=== PATIENT | female | born 1995 | race Caucasian/White ===

== ENCOUNTER → 2016-07-10 | Outpatient (CLI) | payer SELFPAY ==
--- NOTE | 2016-07-10 18:22 | DI ---
LEFT ANKLE, 07/10/2016 5:46 PM: Clinical History: Left ankle injury. Initial encounter. Previous Exam: 06/19/2015. 3 views are submitted. There is no acute soft tissue, osseous, or joint abnormality. Reading: Normal left ankle exam.
== END ==
LOC: MOB RAD 17:46
PROVIDERS: ATTEND Physician Assistant Medical
DX: S99.912A Unspecified injury of left ankle, initial encounter (principal); S93.412A Sprain of calcaneofibular ligament of left ankle, initial encounter; W22.8XXA Striking against or struck by other objects, initial encounter
CPT/HCPCS: 73610

== ENCOUNTER → 2016-11-13 | Outpatient (CLI) | payer OTHER ==
--- NOTE | 2016-11-13 15:10 | DI ---
History: Early stage of Comparison: None Findings: There are intra-uterine twin gestational sacs by a septum. Sac size indicates a gestational age of 6 weeks 2 days, to 6 weeks 3 days. Neither a pole nor yolk sac could be identified in either gestational sac. The right ovary is normal in appearance and measures 4.2 x 2.3 x 2.6 cm. The left ovary could not be identified. There are no cystic or echogenic adnexal lesions. There is a very small amount of free fluid in the cul-de-sac. Impression Findings indicate blighted ovum. Possibility of ectopic cannot completely be excluded. Reimaging within the next 2 weeks is recommended.
--- NOTE | 2016-11-14 11:29 | DI ---
Clinical history: Early stage of . Gestational age by last menstrual period is 8 weeks 2 day s Comparison: None Findings: There is an intrauterine uterine gestational sac with a thin septation, indicating twin pre gnancy. Cannot identify a pole or yolk sac in either gestational sac a or b Gestational age of twin A. By sac size is 6 weeks 2 days Gestational age of twin B by sac size is 6 weeks 3 days. There are no echogenic or anechoic adnexal lesions. There is no free fluid. Ovaries could not be iden tified. Impression Intrauterine gestational sac which appears to represent a twin gestation. Neither pole nor yolk sac could be identified for either twin A. or twin B. Findings could indicate early intrauterine , blighted ovum, or ectopic . Followup u ltrasound examination in 2 weeks is recommended.
== END ==
LOC: US 13:52
PROVIDERS: ATTEND Obstetrics & Gynecology
DX: Z36 Encounter for antenatal screening of mother (principal)
CPT/HCPCS: 36415; 76801; 76817; 84702; 86900; 86901

== ENCOUNTER → 2016-11-15 | Outpatient (CLI) | payer OTHER | LOC: LAB 10:51 | PROVIDERS: ATTEND Obstetrics & Gynecology | DX: O02.0 Blighted ovum and nonhydatidiform mole (principal) | CPT/HCPCS: 36415; 84702 ==

== ENCOUNTER → 2016-11-17 | Outpatient (CLI) | payer OTHER | LOC: LAB 10:49 | PROVIDERS: ATTEND Obstetrics & Gynecology | DX: O02.0 Blighted ovum and nonhydatidiform mole (principal); R79.89 Other specified abnormal findings of blood chemistry | CPT/HCPCS: 36415; 84702 ==

== ENCOUNTER → 2016-11-20 | Outpatient (CLI) | payer OTHER ==
--- NOTE | 2016-11-20 15:26 | DI ---
OBSTETRICAL ULTRASOUND, 11/20/2016 2:21 PM: Clinical History: Anembryonic twin . Previous Exam: 11/13/2016. LMP: 09/16/2016. Twin intrauterine gestational sacs are visualized. Both gestational sacs contain no parts consi stent with the clinical history of anembryonic twin pregnancies. The mean gestational sac diameters a re 15 and 16 cm each and on the previous study, they were 15 cm apiece. This would indicate there has been no significant interval growth over a duration of one week. The right ovary is normal. The left ovary is not visualized. Reading: Twin intrauterine gestational sacs without evidence of parts and without demonstrable growth ov er a duration of one week consistent with anembryonic pregnancies.
== END ==
LOC: US 14:16
PROVIDERS: ATTEND Obstetrics & Gynecology
DX: O02.0 Blighted ovum and nonhydatidiform mole (principal); R79.9 Abnormal finding of blood chemistry, unspecified
CPT/HCPCS: 76817

== ENCOUNTER 2016-11-23 06:08 | Day surgery (SDC) | payer OTHER ==
[2016-11-23] MEDS ORDERED: LIDOCAINE W/ SODIUM BICARB 0.5 ML SYR ONE (06:12)
[2016-11-23] MEDS ORDERED: Sodium Chloride 0.9% 100 ML IV ONE (06:13)
[2016-11-23] MEDS ORDERED: Lactated Ringers 1,000 ML PRIMARY IV ONE (06:13)
[2016-11-23] MEDS ORDERED: LIDOCAINE MPF 2% - 5 ML (20 MG/1 ML) ONE (06:57)
[2016-11-23] MEDS ORDERED: MIDAZOLAM 5 MG/1 ML ONE (06:57)
[2016-11-23] MEDS ORDERED: fentaNYL Inj 100 MCG/2 ML VIAL ONE (06:57)
[2016-11-23] MEDS ORDERED: Sodium Chloride 0.9% vial 10 ML ONE (06:57)
[2016-11-23] MEDS ORDERED: Acetaminophen 1000mg Inj 100 ML IV ONE (07:21)
[2016-11-23] MEDS ORDERED: KETAMINE 100 MG/1 ML - 5 ML ONE (07:38)
[2016-11-23] MEDS ORDERED: DEXAMETHASONE PF 10 MG/1 ML VIAL ONE (07:56)
[2016-11-23] MEDS ORDERED: KETOROLAC 30 MG/1 ML VIAL ONE (07:56)
[2016-11-23] MEDS ORDERED: ONDANSETRON 4 MG/2 ML VIAL ONE (07:57)
[2016-11-23] MEDS ORDERED: METHYLERGONOVINE MALEATE 0.2 MG/1 ML VIAL IM ONE (08:07)
[2016-11-23] MEDS ORDERED: ONDANSETRON 4 MG/2 ML VIAL IVP PRN (08:10)
[2016-11-23] MEDS ORDERED: Ondansetron ODT Tab 8 MG TAB PO PRN (08:10)
[2016-11-23] MEDS ORDERED: ATROPINE SULFATE 0.4 MG/1 ML VIAL IVP PRN (08:10)
[2016-11-23] MEDS ORDERED: NORMAL SALINE 10 ML SYRINGE FLUSH IVP PRN ×2 (08:10→08:23)
[2016-11-23] MEDS ORDERED: HYDROmorphone 2 MG/1 ML IVP PRN (08:10)
[2016-11-23] MEDS ORDERED: Lactated Ringers 1,000 ML PRIMARY IV SCH (08:15)
[2016-11-23] MEDS ORDERED: HYDROcodone-APAP 5 MG -325 MG TABLET PO PRN (08:23)
--- NOTE | 2016-11-23 08:42 | OB.OP.NOTE ---
Operative Report Surgeon: Julius Anesthesia Type: General (With LMA) Anesthesia Provider: Jaz Graham CRNA Surgery Date: 11/23/16 Preoperative Diagnosis: Twin Anembryonic gestation with abnormal quantitative hCG. The patient desired definitive management with suction D&C Postoperative Diagnosis: Same Procedure: Examined under anesthesia. Suction D&C Estimated Blood Loss (mL): 125 Fluids: 1700 mL LR. 150 mL of urine. 2 g Mefoxin IV after test dose Complications: None apparent No evidence of uterine perforation with uterine sound or with suction curette or sharp curette Findings at Surgery: Cervical OS dilated easily after Cytotec administration the evening before Tissue-products of conception-was suction curetted [place] after suction curette with gentle sharp curetting No evidence of uterine perforation Indications for the Procedure: The patient is a 21-year-old G one P0010 with a twin anembryonic gestation diagnosed by ultrasound and abnormal quantitative hCGs. The patient had 2 ultrasounds a week apart which confirmed the Anembryonic gestation and quantitative hCG 3. The patient desired definitive management with a suction D&C The patient has Rh+ blood Description of Procedure: After the risks, benefits, alternatives and indication of a suction D&C were discussed with the patient, the consent forms have been signed 2 days prior to the surgery. The Patient had placed Cytotec the evening before surgery. The patient did have some bleeding overnight with a possible passage of some tissue overnight. The morning of surgery, the patient was still bleeding. We discussed the procedure again and the patient agreed. The patient was brought to the operating room. The patient underwent general anesthesia with LMA. The patient was placed in the dorsal lithotomy position with yellowfin stirrups. The patient had SCDs in place and the machine was on. This was completed before induction of anesthesia. An exam under anesthesia was completed but I cannot palpate the uterus well. By ultrasound, the patient's uterus was anteflexed. But the patient's body habitus did not allow me to palpate the uterus well. The patient was prepped and draped sterilely. The bladder was drained of about 150 mL of urine. A timeout was completed and the patient and procedure were identified. The patient was awakened from her A weighted speculum was placed posterior and a Cope retractor was placed anteriorly. The patient's cervix was small and was very high in her pelvis. I was able to place a single-tooth tenaculum on the posterior lip of the cervical OS. The reason for placing the tenaculum on the posterior lip was secondary to the fact that the patient's uterus was anteflexed by ultrasound. I sounded the uterus to 9 cm. A #8 suction curved curette was requested. I dilated the patient's cervix up to a 30 dilator and the cervix easily dilated secondary to the Cytotec administration the previous evening which had ripened the patient's cervix. I then placed the suction curet through the cervix after testing the suction curette to a pressure of about 42. The suction curet was then allowed to curette any tissue and there was tissue obtained immediately. I suction curetted several times and then used a #1 sharp curette gently and there still was tissue around 12:00. There was a crigh obtained about 9:00. The curved suction curet was used again and more tissue was obtained. I gently sharply curetted again and there was still a small amount of tissue anteriorly. Care was taken not to perforate the uterus but to attempt to extract all of the tissue anteriorly. A suction curette was used again and there is a small amount of tissue obtained this time but mostly small amount of blood. A gentle sharp curetting was completed again and there appeared to be a good crigh in all 4 quadrants of the endometrial cavity. Since the patient's uterus was anteflexed, of course I was always cognizant of the fact of possible uterine perforation. There did not appear to be uterine perforation at any time. I had consented the patient before explaining that sometimes there is retained tissue and sometimes a second surgery or perhaps Cytotec would be required at a later date. Hopefully, of course, this is not the fact and I obtained all the tissue of products of conception. The suction curetting was completed. The tenaculum was removed from the posterior lip of the cervix. Initially, there was some bleeding. I attempted to place a suture but it was difficult to reach the cervix with the weighted speculum posteriorly and then a Cope retractor retracting anteriorly. However, eventually there was good hemostasis from the posterior lip of the cervix from the tenaculum site. There was also good hemostasis from the cervical OS. Methergine 0.2 mg IM was administered. The patient was awakened from her general anesthesia with LMA. LMA was removed. Toradol was administered IV. The patient was brought to the PACU in stable condition. Plan: I did speak with the patient's grandmother who was waiting in the operating room waiting room per patient request. I informed her that I believed everything went well and there was no evidence of uterine perforation. We did discuss the patient's anteflexed uterus and the fact that products of conception tissue could remain in the uterus and further procedures could be required but hopefully not. I would like to follow the patient's quantitative hCGs down to less than 2. The first one will be done in about 2 or 3 weeks.
[2016-11-23 08:53] VITALS: RESP 24; TEMP 98.3
[2016-11-23] MEDS ORDERED: HYDROmorphone 2 MG/1 ML ONE (09:03)
[2016-11-23] MEDS ORDERED: CITRIC ACID/SODIUM CITRATE 30 ML CUP PO ONE (09:57)
[2016-11-23] MEDS: CITRIC ACID/SODIUM CITRATE 30 ML CUP PO ONE ×2 (10:04→10:08)
== END 2016-11-23 10:42 | disposition home or self-care (01) ==
LOC: SDSC 06:08
PROVIDERS: ATTEND Obstetrics & Gynecology
DX: O02.1 Missed abortion (principal)
CPT/HCPCS: 59820; A4216; J0131; J0694; J1100; J1170; J1885; J2001; J2210; J2250; J2405; J2704; J3010; J7050; J7120

== ENCOUNTER 2018-02-01 14:29 | Observation (INO) ==
[2018-02-01 14:44] VITALS: BP 124/72; RESP 18; O2SAT 98
[2018-02-01] MEDS ORDERED: Lactated Ringers 1,000 ML PRIMARY IV ONE (16:27)
[2018-02-01] MEDS ORDERED: Lactated Ringers 1,000 ML PRIMARY IV SCH (16:30)
[2018-02-01 16:38] LABS: BILIRUBIN,URINE NEGATIVE (NEG); CLARITY,URINE CLEAR (CLEAR); COLOR,URINE YELLOW; GLUCOSE, URINE (UA) NEGATIVE (NEG); OCCULT BLOOD,URINE NEGATIVE (NEG); PH,URINE 7.5 (5.0-8.5); PROTEIN,URINE NEGATIVE (NEG); UROBILINOGEN,URINE 0.2 mg/dL (0.2)
[2018-02-01 16:44] LABS: RBC,URINE RARE /hpf; SQUAMOUS EPITHELIAL CELL,UR MODERATE; URINE SAMPLE TYPE CLEAN CATCH URINE; WBC,URINE RARE
--- NOTE | 2018-02-01 17:00 | OB.PROGRES ---
Intake - - Reason for Visit/Chief Complaint: Contractions Admitted From: Home - Estimated Due Date: 03/14/18 Gestational Age in Weeks and Days: 34 Weeks and 1 Days : 2 Para: 0 Term Births: 0 Births: 0 Number of Abortions (Spont./Elective): 1 Living Children: 0 - Labs Blood Type and Rh: O+ Group B Strep: Unknown Hepatitis B Surface Antigen: Absent HIV: Negative Rubella Status: Immune VDRL/RPR: Absent Maternal - Vital Signs Last Taken Vital Signs: Vital Signs - Last Taken Temperature 97.3 F 02/01/18 14:41 Pulse Rate 116 H 02/01/18 14:41 Respiratory Rate 18 02/01/18 14:41 Blood Pressure 124/72 02/01/18 14:41 Pulse Ox 98 02/01/18 14:41 - Cervical Exam Cervical Dilation (cm): 0 Station: -3 Exam Performed By: Jose Alfredo Cid RN - Vaginal Discharge Vaginal Bleeding Amount: None Vaginal Discharge Amount: Moderate Vaginal Discharge Color: White Monitoring - Uterine Activity Uterine Contraction Monitor Mode: External Contraction Frequency(minutes): 2-5 Contraction Duration (seconds): 30-60 Uterine Contraction Pattern: Irregular Uterine Tone Measurement Phase: Soft Uterine Contraction Intensity: Moderate Results - Bedside Testing Bedside Urine Ketone: Negative Bedside Urine Leukocytes Esterase: Negative Bedside Urine Nitrite: Negative Bedside Urine Occult Blood: Negative Bedside Urine Protein: Negative Bedside Specific Grandin: 1.020 Assessment and Plan - Assessment / Plan Additional Assessment/Plan Details: The patient is a 22-year-old at 34-1/7 weeks BAMBI of 03/14/2018 with chronic hypertension with normal blood pressures this but a history of essential hypertension and the patient has proteinuria and morbid obesity history who has done well this . Ultrasound past week showed an ROCIO of 18.9 and EFW to be 89th percentile. The patient presented to labor and delivery today with the observation or complaint of some upper abdominal discomfort that radiated to her lower abdomen and was increased when she sat up. The pain was intermittent. No gush of fluid. Positive movement. No bleeding. The patient was recently seen for right upper quadrant discomfort and liver function tests were normal. Patient also informed the nurse that she had increased vaginal discharge but no gush of fluid. Please see my H&P from her first visit below. The patient is a 22-year-old white female Last menstrual period 2017 who presents for a new OB visit. A month ago the patient had some bleeding and had an ultrasound in the middle of July and then a repeat ultrasound at 07/26/2017 which showed an IUP measuring 6-3/7 weeks with a heart rate 124. There was also a significant subchorionic hemorrhage. The patient has not had vaginal bleeding recently. The patient does have some nausea and occasionally she has emesis since she is . Past medical history significant for GERD, polycystic ovarian syndrome, asthma, Morbid obesity The patient does have a history of hypertension. Migraine headaches. Patient was on a medication but stopped this since she found out she was . Past surgical history significant for suction D&C for a twin anembryonic gestation In October 2016. Normal pathology. The patient is allergic to penicillin and sulfa. The patient does smoke. The patient does desire to quit. No alcohol since she found out she was . No drugs. 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 Positive polycystic ovarian syndrome. History as above. Objective: Please see the vital signs Comfortable, nontoxic, very polite as usual Lungs clear to auscultation Heart regular rate and rhythm Abdomen is gravid, obese, nontender without guarding or rebound. Slight discomfort with palpation PHILOSOPHY INSTRUCTOR exam-cervix was checked by nurse and it was long thick closed and high Extremities showed no Homans 2+ pitting edema bilaterally Reflexes were 2+ bilaterally with no clonus UA with micro-was negative Vaginosis panel was negative for BV fibronectin was negative heart rate tracing was reactive [place] showed frequent uterine irritability and occasional contraction Assessment: IUP 34-1/7 week with uterine irritability and occasional contraction. fibronectin was negative. Blood pressures normal. UA with micro-was negative. Vaginosis panel was negative. Plan: I would like to observe the patient in the hospital overnight with IV fluids and decrease activity I will consider nifedipine for the uterine irritability but secondary to the patient's chronic hypertension with normal blood pressures so far, I do not want to mask elevated blood pressures later in the third trimester. I will consider betamethasone steroids for lung maturity but the patient' s fibronectin was negative and the patient's cervix is closed and high. I will not administer these currently. Close observation overnight.
[2018-02-01] MEDS ORDERED: ONDANSETRON 4 MG/2 ML VIAL IVP PRN (17:05)
[2018-02-01] MEDS ORDERED: LIDOCAINE W/ SODIUM BICARB 0.5 ML SYR SUBD PRN (17:05)
[2018-02-01 19:06] VITALS: TEMP 97.8
[2018-02-02] MEDS ORDERED: Prenatal Multivitamin Tab 1 TAB TAB PO SCH (09:00)
[2018-02-02] MEDS ORDERED: FAMOTIDINE 20 MG TABLET PO SCH (09:00)
--- NOTE | 2018-02-02 10:44 | OB.PROGRES ---
Objective - Vital Signs Last Taken Vital Signs: Vital Signs - Last Taken Temperature 97.8 F 02/01/18 18:30 Pulse Rate 116 H 02/01/18 14:41 Respiratory Rate 18 02/01/18 14:41 Blood Pressure 124/72 02/01/18 14:41 Pulse Ox 98 02/01/18 14:41 Assessment and Plan - Assessment / Plan Additional Assessment/Plan Details: I was contacted by the nurse last evening after I called that she was working with the patient. She inform me that the patient wanted to go home and that she did not have the same discomfort that she had had several hours previously. With decreased activity, the patient's contractions and uterine irritability had decreased significantly. The patient had had 1 or 2 contractions in the past 2 hours. I requested that the nurse wait another 30 minutes to ensure that the contractions and uterine irritability were not present or were not significant and then the patient can be discharged home. The patient was discharged home with precautions by the nurse. The patient would follow-up with antepartum testing secondary to her chronic hypertension. The patient was also given specific labor precautions and kick count precautions.
--- NOTE | 2018-02-02 10:47 | DCSUMMARY ---
Hospitalization Summary Admit Date: 02/01/18 Discharge Date: 02/01/18 Primary Diagnosis:: IUP 34 1/7 wks with ctxs/abdominal discomfort Hospital Course: I was contacted by the nurse last evening after I called that she was working with the patient. She inform me that the patient wanted to go home and that she did not have the same discomfort that she had had several hours previously. With decreased activity, the patient's contractions and uterine irritability had decreased significantly. The patient had had 1 or 2 contractions in the past 2 hours. I requested that the nurse wait another 30 minutes to ensure that the contractions and uterine irritability were not present or were not significant and then the patient can be discharged home. The patient was discharged home with precautions by the nurse. The patient would follow-up with antepartum testing secondary to her chronic hypertension. The patient was also given specific labor precautions and kick count precautions. Exam - Vitals Vital Signs: Vital Signs Temperature 97.8 F Temperature Source Oral Pulse Rate [Pulse Oximeter] 116 Respiratory Rate 18 Blood Pressure [Right Arm] 124/72 Pulse Ox 98 Oxygen Delivery Method Room Air Height 5 ft 4 in Weight 271 lb
== END 2018-02-01 20:36 | disposition home or self-care (01) ==
LOC: OBOP 14:29 → OBIP 14:29
PROVIDERS: ADMIT Obstetrics & Gynecology; ATTEND Obstetrics & Gynecology

== ENCOUNTER 2018-03-04 08:45 | Inpatient (IN) ==
--- NOTE | 2018-03-04 15:30 | DI ---
US OB , Limited 03/04/2018 8:50 AM History: [facility] [place] ^[id number] ^O26.843 Uterine size-date discrepancy, third trimester ^EFW w/ and ROCIO for S>D; Technique: Targeted camejo scale and Doppler ultrasound of the gravid uterus was performed. Comparison: 02/25/2018. Presentation: Vertex. Placenta: Anterior. The cervix was not visualized due to position. ROCIO measures 18.7 cm. Biometry: Biparietal diameter 97 mm corresponds to 39 weeks 5 day(s). Head circumference 341 mm corresponds to 39 weeks 2 day(s). Abdominal circumference 368 mm corresponds to 40 weeks 6 day(s). Femur length 74 mm corresponds to 38 weeks 0 day(s). Estimated weight is 3912 g which is 91 % for age (Hadlock criteria). HC/AC is 0.93 which is within normal limits. Cardiac Activity: 150 BPM Gestational Age (based on LMP or early OB scan): 38 weeks 4 day(s); BAMBI: 03/14/2018 Composite Sonographic Age: 39 weeks 4 day(s); BAMBI: 03/07/2018 Impression: 1. Single living intrauterine gestation with EGA based on this ultrasound of 39 weeks 4 day(s). 2. EFW is 3912 g which is 91 % for age. 3. ROCIO is 18.7 cm.
[2018-03-04] MEDS ORDERED: Sodium Chloride 0.9% 1,000 ML PRIMARY IV ONE (15:43)
[2018-03-04] MEDS ORDERED: LIDOCAINE HCL 2 % 10 ML JELLY URO-JECT TOPICAL PRN ×2 (17:12→17:40)
[2018-03-04] MEDS ORDERED: ePHEDrine Inj 50 MG/ML AMP ONE (17:18)
[2018-03-04] MEDS ORDERED: PHENYLEPHRINE 10,000 MCG/1 ML VIAL ONE (17:19)
[2018-03-04] MEDS ORDERED: Sodium Chloride 0.9% vial 10 ML ONE (17:19)
[2018-03-04] MEDS ORDERED: Lactated Ringers 1,000 ML PRIMARY IV ONE ×3 (17:24→17:40)
[2018-03-04] MEDS ORDERED: Metoclopramide Inj 10 MG/2 ML VIAL ONE (17:32)
[2018-03-04] MEDS ORDERED: CITRIC ACID/SODIUM CITRATE 30 ML CUP PO ONE ×2 (17:32→17:40)
[2018-03-04] MEDS ORDERED: FAMOTIDINE 20 MG/2 ML VIAL IVP ONE ×2 (17:33→17:40)
[2018-03-04] MEDS ORDERED: Sodium Chloride 0.9% 100 ML IV ONE (17:33)
[2018-03-04] MEDS ORDERED: LIDOCAINE W/ SODIUM BICARB 0.5 ML SYR SUBD PRN ×2 (17:40→19:23)
[2018-03-04] MEDS ORDERED: CefOXitin Inj 2 GM in Sodium Chloride 0.9% 100 ML IV ONE (17:40)
[2018-03-04] MEDS ORDERED: Metoclopramide Inj 10 MG/2 ML VIAL IV ONE (17:40)
[2018-03-04] MEDS ORDERED: Oxytocin 20 Units + LR 20 UNIT/1,000 ML BAG IV SCH ×2 (17:45→20:22)
[2018-03-04] MEDS ORDERED: Lactated Ringers 1,000 ML PRIMARY IV SCH (17:45)
[2018-03-04] MEDS ORDERED: Clindamycin 900mg (Premix) 900 MG/50 ML BAG IV ONE ×2 (18:02→18:05)
[2018-03-04 18:08] LABS: Hematocrit [HCT] 33.4 % (37.0-47.0); Hemoglobin [HGB] 10.7 g/dL (12.0-16.0); MEAN CORPUSCULAR HEMOGLOBIN 26.2 PG (27-31); MEAN CORPUSCULAR VOLUME 81.7 FL (81-99); MEAN PLATELET VOLUME 9.9 FL (7.4-12.2); RED BLOOD COUNT 4.09 10^6/uL (4.20-5.40)
[2018-03-04] MEDS ORDERED: fentaNYL Inj 100 MCG/2 ML VIAL ONE (18:10)
[2018-03-04] MEDS ORDERED: BUPIVACAINE SPINAL 7.5 MG/1 ML - 2 ML IV ONE (18:10)
[2018-03-04] MEDS ORDERED: ONDANSETRON 4 MG/2 ML VIAL ONE (18:53)
[2018-03-04] MEDS ORDERED: ATROPINE SULFATE 0.4 MG/1 ML VIAL IVP PRN (19:23)
[2018-03-04] MEDS ORDERED: ONDANSETRON 4 MG/2 ML VIAL IVP PRN ×2 (19:23→20:22)
[2018-03-04] MEDS ORDERED: fentaNYL Inj 100 MCG/2 ML VIAL IVP PRN (19:23)
[2018-03-04] MEDS ORDERED: HYDROmorphone 2 MG/1 ML IVP PRN ×3 (19:23→23:27)
[2018-03-04] MEDS ORDERED: Ondansetron ODT Tab 8 MG TAB PO PRN (19:23)
--- NOTE | 2018-03-04 19:23 | CRNA.PROGR ---
Anesthesia Time - Procedure/Recovery Time Start Date: 03/04/18 End Date: 03/04/18 Anesthesia : Time In: 18:11 Anesthesia : Time Out: 19:10 Anesthesia : Total Time: 59 - Total Anesthesia Time Total Anesthesia Time (minutes): 59 - Other Weight: 127.006 kg Height: 5 ft 4 in Body Mass Index (BMI): 48.0 Physical Status: P3 (Morbid Obesity)
--- NOTE | 2018-03-04 19:23 | CRNA.PROGR ---
Post Anesthesia Phase II - Post Anesthesia Phase II Patient Stable and Discharged To: OB Care Assumed By Surgeon: Sloan Campos MD Temperature: 97.6 F Pulse Rate: 113 Respiratory Rate: 20 Pulse Ox: 95 Total Dari Score at Discharge: 9 Post Anesthesia Discharge Criteria Met: Yes
[2018-03-04] MEDS ORDERED: Sodium Chloride 0.9% 1,000 ML PRIMARY IV SCH (19:30)
[2018-03-04] MEDS ORDERED: FAMOTIDINE 20 MG/2 ML VIAL IVP PRN (20:22)
[2018-03-04] MEDS ORDERED: Nalbuphine Inj 20 MG/ML Ampule IVP PRN (20:22)
[2018-03-04] MEDS ORDERED: diphenhydrAMINE 50 MG/1 ML VIAL IV PRN (20:22)
[2018-03-04] MEDS ORDERED: CALCIUM CARBONATE 500 MG (TUMS) CHEWABLE TABLET PO PRN (20:22)
[2018-03-04] MEDS ORDERED: BUTORPHANOL TARTRATE 2 MG/1 ML VIAL IVP PRN (20:22)
[2018-03-04] MEDS ORDERED: DIPH,PERTUSS,TET(ADACEL) VAC/PF 0.5 ML (Tdap) IM ONE (20:22)
[2018-03-04] MEDS ORDERED: diphenhydrAMINE 25 MG CAPSULE PO PRN (20:22)
[2018-03-04] MEDS ORDERED: LANOLIN HPA 40 GM TUBE TOPICAL PRN (20:22)
[2018-03-04] MEDS ORDERED: Naloxone Inj 0.01 MG, Sodium Chloride 0.9% vial 1 ML IVP PRN ×2 (20:22)
[2018-03-04] MEDS: KETOROLAC 15 MG/1 ML VIAL IVP SCH (20:30)
--- NOTE | 2018-03-04 20:32 | OB.OP.NOTE ---
Operative Report - - Surgeon: Anurag Campos MD Knitting Tester: Telly Adams MD Anesthesia Type: Regional Anesthesia Provider: Jaz Graham CRNA Surgery Date: 03/04/18 Preoperative Diagnosis: Term IUP, suspected macrosomia, pt requesting primary section Postoperative Diagnosis: same, delivered. Procedure: Primary section Complications: none Estimated Blood Loss (mL): 650 Urine Output (mL): 75 Fluids: 3300 cc LR and 20 mU of pitocin Indications: Callie is a 22 yo at 38 4/7 weeks, who has been followed by Dr. Madrid for this . She has a h/o chronic hypertension by report, but her blood pressures have been normal for the duration of her . She has been coming in for biweekly testing, which has been reassuring to this point. As part of the testing, she had a growth scan done on 02/18, which showed the EFW in the 96th percentile. Because of this, the pt and Dr. Madrid had had some conversations about the best route for delivery. A primary section had been booked for 03/11/18. Today, when the pt presented for her routine antepartum testing, she was noted to be having some contractions. By the time that she had her repeat growth scan, her contractions had become more uncomfortable. Her cervix was checked and she was 1/50/-2. She was observed for 2 hours and rechecked and was 1-2/70/-1. Her contractions were roughly 4 minutes apart and hurting, mostly in her back. I came and spoke with the pt about the increased risk of a delivery in someone of her size, including increased risk of bleeding, infection to the skin infection requiring more surgery or procedures, blood clots or even , among other things. She was in early labor at that point and I gave her the option of laboring and seeing how things went and then performing a section for the standard indications such as intolerance to labor and failure to progress. She stated that she was more comfortable with the original plan discussed with Dr. Madrid and still wanted a section. Findings: male infant, cephalic [place] presentation, clear amniotic fluid. Description of Procedure: The patient was taken to the operating room where spinal anesthesia was found to be adequate. She was then prepared and draped in the normal sterile fashion in the dorsal supine position with a leftward tilt. A Pfannenstiel skin incision was then made with the scalpel and carried through to the underlying layer of fascia with the Bovie. The fascia was incised in the midline and the incision extended laterally with the Bovie. The superior aspect of the fascial incision was then grasped with the Killian clamps, elevated, and the underlying rectus muscles dissected off bluntly. Attention was then turned to the inferior aspect of this incision which, in a similar fashion, was grasped with the Killian clamps and the rectus muscles dissected off both bluntly and with the Bovie. The rectus muscles were then in the midline, and the peritoneum identified and entered digitally. The peritoneal incision was then extended superiorly and inferiorly with good visualization of the bladder. The Wilber retractor was then inserted and the vesicouterine peritoneum was identified. The lower uterine segment was incised in a transverse fashion with the scalpel. The uterine incision was then extended laterally in a blunt fashion. The 's head was delivered atraumatically. The nose and mouth were suctioned with the bulb suction and the cord clamped and cut after 45 seconds for delayed cord clamping. The infant was handed off to the awaiting nurse. Cord gases and cord blood were sent for analysis. The placenta was then removed manually; the uterus exteriorized, and cleared of all clots and debris. The uterine incision was repaired with 0 Vicryl in a running, locked fashion. A second layer of the same suture was used to obtain excellent hemostasis. The peritoneal cavity was then copiously irrigated with warm saline. The uterus was returned to the abdomen. The paracolic gutters were copiously irrigated with warm saline and a second look at the uterine incision continued to reveal excellent hemostasis. The peritoneum was closed with 3-0 Vicryl. The fascia reapproximated with 0 Vicryl in a running fashion. The subcutaneous space was irrigated copiously with warm saline and then closed with 3-0 Vicryl. The skin was reapproximated with metal skin rosana and a Silverlon dressing applied. Fundal massage was completed with no clots in vaginal vault. The patient tolerated the procedure well. Sponge, lap, and needle counts were correct x2. Clindamycin was given preoperatively less than one hour prior to incision time. The patient was taken to the recovery room in stable condition.
[2018-03-04] MEDS: D5-LR 1,000 ML PRIMARY IV SCH (21:40)
[2018-03-04] MEDS: ENOXAPARIN SODIUM 40 MG/0.4 ML SYRINGE SUBCUT SCH (21:56)
[2018-03-04] MEDS: oxyCODONE-ACETAMINOPHEN 5-325 TAB PO PRN (22:20)
[2018-03-04] MEDS ORDERED: oxyCODONE-ACETAMINOPHEN 5-325 TAB PO ONE (22:52)
[2018-03-05] MEDS: KETOROLAC 15 MG/1 ML VIAL IVP SCH ×4 (02:22→20:21)
[2018-03-05] MEDS: oxyCODONE-ACETAMINOPHEN 5-325 TAB PO PRN ×5 (03:14→22:06)
[2018-03-05] MEDS ORDERED: Oxytocin 20 Units + LR 20 UNIT/1,000 ML BAG IV SCH (06:00)
[2018-03-05] MEDS ORDERED: Lactated Ringers 1,000 ML PRIMARY IV ONE (06:00)
[2018-03-05] MEDS ORDERED: FAMOTIDINE 20 MG/2 ML VIAL IVP ONE (06:00)
[2018-03-05] MEDS ORDERED: CITRIC ACID/SODIUM CITRATE 30 ML CUP PO ONE (06:00)
[2018-03-05] MEDS ORDERED: CefOXitin Inj 2 GM in Sodium Chloride 0.9% 100 ML IV ONE (06:00)
[2018-03-05] MEDS ORDERED: LIDOCAINE W/ SODIUM BICARB 0.5 ML SYR SUBD PRN (06:00)
[2018-03-05] MEDS ORDERED: Metoclopramide Inj 10 MG/2 ML VIAL IV ONE (06:00)
[2018-03-05] MEDS ORDERED: Lactated Ringers 1,000 ML PRIMARY IV SCH (06:00)
[2018-03-05] MEDS: D5-LR 1,000 ML PRIMARY IV SCH ×2 (06:58→13:33)
[2018-03-05 07:43] LABS: Hematocrit [HCT] 30.1 % (37.0-47.0); Hemoglobin [HGB] 9.5 g/dL (12.0-16.0); MEAN CORPUSCULAR HGB CONC 31.6 g/dL (33-37); MEAN CORPUSCULAR VOLUME 82.5 FL (81-99); MEAN PLATELET VOLUME 10.2 FL (7.4-12.2); RED BLOOD COUNT 3.65 10^6/uL (4.20-5.40)
[2018-03-05] MEDS: Prenatal Multivitamin Tab 1 TAB TAB PO SCH (09:02)
[2018-03-05] MEDS: ENOXAPARIN SODIUM 40 MG/0.4 ML SYRINGE SUBCUT SCH ×2 (09:02→22:05)
[2018-03-05] MEDS: Senna/Docusate Tab 1 TAB TAB PO SCH ×2 (09:02→22:06)
[2018-03-05] MEDS: FERROUS GLUCONATE 324 MG TABLET PO SCH ×2 (12:01→22:06)
[2018-03-05 12:50] LABS: BLOOD UREA NITROGEN 6 mg/dL (7-22); SERUM ALBUMIN 2.4 g/dL (3.5-4.8); Uric Acid 4.5 mg/dl (2.5-6.2)
--- NOTE | 2018-03-05 22:25 | OB.PROGRES ---
Subjective Post Day: 1 Pain Management: PO Fraser Catheter: Yes Flatus: No Lochia Color: Rubra/Red Small 10-25 ml Diet: Regular Feeding Method: / Bottle Ambulating: Yes Concerns / Additional Information: Feeling well with no complaints. Denies chest pain, shortness of breath, calf pain. is coming along. Has been up once already and walked a complete lap around the nurse's station. Denies NOLAN, RUQ pain or vision changes. Due to a computer issue, she was actually given her first dose of lovenox last n oc. Objective - General General Appearance: POSITIVE: No Acute Distress, Cooperative - Cardiovacular Cardiovascular Exam: POSITIVE: RRR, No Murmur Edema: No Pedal Edema - Respiratory Respiratory Exam: POSITIVE: Clear to Auscultation - Bilaterally, Breathing Non Labored - Abdomen Bowel Sounds: Hypoactive Abdominal Wound Assessment: Silverlone Dressing Assesstment / Plan (1) Status post primary low transverse section Current Visit: Yes Status: Acute Assessment / Plan: -doing well; routine post-operative cares. -normotensive thus far, gestational HTN panel normal this morning as well. -continue lovenox bid for increased BMI to help prevent venous thromboembolism. Encourage ambulation. -continue breast feeding support. Public Health datastage consultant notified of delivery. -Rh postiive. -rubella immune. -possible d/c home in 1-2 days.
[2018-03-06] MEDS: IBUPROFEN 800 MG TABLET PO SCH ×3 (03:07→18:37)
[2018-03-06] MEDS: oxyCODONE-ACETAMINOPHEN 5-325 TAB PO PRN ×4 (03:07→18:35)
[2018-03-06] MEDS: ENOXAPARIN SODIUM 40 MG/0.4 ML SYRINGE SUBCUT SCH ×2 (08:37→20:45)
[2018-03-06] MEDS: FERROUS GLUCONATE 324 MG TABLET PO SCH ×2 (08:38→20:45)
[2018-03-06] MEDS: Senna/Docusate Tab 1 TAB TAB PO SCH ×2 (08:38→20:45)
[2018-03-06] MEDS: Prenatal Multivitamin Tab 1 TAB TAB PO SCH (08:38)
--- NOTE | 2018-03-06 09:03 | OB.PROGRES ---
Subjective Post Day: 2 Pain Management: PO Fraser Catheter: No Flatus: Yes Lochia Color: Rubra/Red Scant < 10 ml Diet: Regular Feeding Method: Exculsively Ambulating: Yes Concerns / Additional Information: Doing well. Nursing reports that she is having a little bit of trouble getting out of the bed. She was up ambulating in the night again because of gas pains. No bowel movement yet. + flatus. Tolerating regular diet. Bleeding is scant. Pain is well controlled with percocet and motrin. Denies NOLAN, vision changes, RUQ pain. Objective - General General Appearance: POSITIVE: No Acute Distress, Cooperative - Cardiovacular Cardiovascular Exam: POSITIVE: RRR, No Murmur Edema: No Pedal Edema Extremities: Negative Mac's - Bilaterally - Respiratory Respiratory Exam: POSITIVE: Clear to Auscultation - Bilaterally, Breathing Non Labored - Abdomen Bowel Sounds: Present Abdominal Wound Assessment: [place] Dressing Assesstment / Plan (1) Status post primary low transverse section Current Visit: Yes Status: Acute Assessment / Plan: -routine cares. -ambulate -continue lovenox. -continue iron for mild post-op anemia. -probable d/c home tomorrow.
[2018-03-06] MEDS: SIMETHICONE 80 MG TABLET PO PRN ×2 (09:36→17:43)
[2018-03-07] MEDS: oxyCODONE-ACETAMINOPHEN 5-325 TAB PO PRN ×4 (00:20→17:41)
[2018-03-07] MEDS: Senna/Docusate Tab 1 TAB TAB PO SCH ×2 (09:10→20:25)
--- NOTE | 2018-03-07 09:10 | OB.PROGRES ---
Subjective Post Day: 3 Pain Management: PO Fraser Catheter: No Flatus: No Lochia Color: Rubra/Red Scant < 10 ml Diet: Regular [place] Feeding Method: / Bottle Ambulating: Yes Concerns / Additional Information: Doing better. Nursing is still giving her her lovenox and she states today that she will give herself her own injections. She is doing better with personal hygiene after getting some tongs to help with wiping. Denies chest pain, shortness of breath, calf pain or other issues. Milk is just starting to come in today, she is pumping. Baby may be kept until tomorrow and if so, pt would like to stay an additional night to get help with breast feeding. Objective - General General Appearance: POSITIVE: No Acute Distress, Cooperative - Cardiovacular Cardiovascular Exam: POSITIVE: RRR, No Murmur Edema: +1 Pedal Edema Extremities: Negative Mac's - Bilaterally - Respiratory Respiratory Exam: POSITIVE: Clear to Auscultation - Bilaterally, Breathing Non Labored - Reflexes Clonus (indicate extremity in comment field): Absent - Abdomen Bowel Sounds: Present Abdominal Wound Assessment: [place] Dressing Assesstment / Plan (1) Status post primary low transverse section Current Visit: Yes Status: Acute Assessment / Plan: -routine cares. -lovenox teaching today. -breast feeding coming along; support offered. -rh positive. -rubella immune. -d/c home probably tomorrow due to feeding issues with the baby. Plan staple removal tomorrow.
[2018-03-07] MEDS: ENOXAPARIN SODIUM 40 MG/0.4 ML SYRINGE SUBCUT SCH ×2 (09:11→20:25)
[2018-03-07] MEDS: FERROUS GLUCONATE 324 MG TABLET PO SCH ×2 (09:11→20:25)
[2018-03-07] MEDS: Prenatal Multivitamin Tab 1 TAB TAB PO SCH (09:11)
--- NOTE | 2018-03-07 10:01 | OT PM DAY ---
PM - Occupational Therapy O: The patient was issued a pair of toilet tongs and instructed in their proper use and care. P: No further therapy is indicated at this time. MTDD
[2018-03-07] MEDS: IBUPROFEN 800 MG TABLET PO SCH ×2 (11:53→20:26)
[2018-03-08] MEDS: oxyCODONE-ACETAMINOPHEN 5-325 TAB PO PRN ×2 (01:06→09:25)
[2018-03-08] MEDS: IBUPROFEN 800 MG TABLET PO SCH ×3 (04:43→11:19)
[2018-03-08] MEDS: Prenatal Multivitamin Tab 1 TAB TAB PO SCH (09:24)
[2018-03-08] MEDS: FERROUS GLUCONATE 324 MG TABLET PO SCH (09:24)
[2018-03-08] MEDS: ENOXAPARIN SODIUM 40 MG/0.4 ML SYRINGE SUBCUT SCH (09:25)
[2018-03-08] MEDS: Senna/Docusate Tab 1 TAB TAB PO SCH (09:30)
[2018-03-08] MEDS ORDERED: Lidocaine Inj 1% 20 ML ONE (13:07)
--- NOTE | 2018-03-27 12:20 | DCSUMMARY ---
Hospitalization Summary Admit Date: 03/04/18 Discharge Date: 03/08/18 Primary Diagnosis:: IUP @ 38 4/7 weeks; suspected macrosomia; morbid obesity Secondary Diagnosis:: same, delivered. Primary Surgery and Date: 03/04/18, primary section Delivery Type: Hospital Course: Pt was admitted in early labor. She underwent a section per a plan she had formulated with Dr. Madrid based on suspicion for macrosomia. Post- operatively, she did well. Lovenox was started post-operatively for DVT prophylaxis given her , obesity and surgery. Her diet was advanced with out difficulty. Baby took some time to become more adept at breast feeding. Pt did have a bowel movement during her time in the hospital. Remained normotensive. / Postop Complications: none; see above Complications: none Exam - Vitals Vital Signs: Vital Signs Temperature 97.6 F Temperature Source Temporal Artery Scan Pulse Rate [Pulse Oximeter] 106 Pulse Rate 94 Respiratory Rate 18 Blood Pressure [Left Arm] 110/71 Blood Pressure [Right Arm] 116/72 Blood Pressure 124/78 Pulse Ox 94 Oxygen Flow Rate 1 Oxygen Delivery Method Room Air Height 5 ft 4 in Weight 280 lb - General General Appearance: No Acute Distress, Cooperative - Head Head Exam: Normal Inspection, Normocephalic - Neck Neck Exam: Normal Inspection - Respiratory Respiratory Exam: POSITIVE: Clear to Auscultation - Bilaterally, Breathing Non Labored - Cardiovascular Cardiovascular Exam: POSITIVE: RRR, No Murmur - GI/Abdominal GI/Abdominal Exam: POSITIVE: Normal Bowel Sounds, Non Tender, Non Distended, Soft - Extremities Extremities Exam: POSITIVE: +1 Edema - Neurological Neurological Exam: POSITIVE: Alert, Oriented x 3 - Psychiatric Psychiatric Exam: POSITIVE: Normal Affect, Normal Mood - Integumentary Integumentary Exam: POSITIVE: Normal Color, Warm, Dry Patient Problems - Patient Problem List (1) Status post primary low transverse section Status: Acute Code(s): Z98.891 - History of uterine scar from previous surgery Category: Surgical (2) Morbid obesity Status: Acute Code(s): E66.01 - Morbid (severe) obesity due to excess calories Category: Medical
[2018-03-29 13:11] VITALS: BP 110/71; RESP 18; TEMP 97.6; O2SAT 94
== END 2018-03-08 13:07 | disposition home or self-care (01) | DRG 788 ==
LOC: OBOP 08:45 → OBIP 17:12
PROVIDERS: ADMIT Family Medicine; ATTEND Family Medicine